=== PATIENT | female | born 1940 | race Caucasian/White ===

== ENCOUNTER → 2016-10-13 | Outpatient (CLI) | payer MEDICARE, BC ==
[~2016-10-13] MED LIST: ALEVE220 MG PO; ASPIRIN E.C. 8181 MG PO; CARDI-OMEGA1000 MG PO; COLACE100 M1 PO; LEVOTHYROXIN0.075 MG PO; LEVOTHYROXINE; STATIN; TRICOR160 MG PO; TYLENOL 325MG325 MG PO; VITAMIN B COMPL1 SGL PO; VITAMIN D32000 IU PO
[2016-10-13 11:41] VITALS: BP 142/64
== END ==
LOC: AMSURD 07:58
DX: E78.2 Mixed hyperlipidemia (principal); C67.9 Malignant neoplasm of bladder, unspecified; M81.0 Age-related osteoporosis without current pathological fracture; Z01.818 Encounter for other preprocedural examination; H27.8 Other specified disorders of lens; E03.4 Atrophy of thyroid (acquired)

== ENCOUNTER → 2016-10-19 | Outpatient (CLI) | payer MEDICARE, BC ==
[2016-10-13 11:41] VITALS: BP 142/64
== END ==
LOC: LAB 16:32
DX: Z01.818 Encounter for other preprocedural examination (principal); Z12.11 Encounter for screening for malignant neoplasm of colon; H28 Cataract in diseases classified elsewhere; C67.9 Malignant neoplasm of bladder, unspecified

== ENCOUNTER → 2017-03-21 | Outpatient (CLI) | payer MEDICARE, BC ==
[2016-10-13 11:41] VITALS: BP 142/64
== END ==
LOC: RAD 09:03
DX: Z01.811 Encounter for preprocedural respiratory examination (principal); C67.9 Malignant neoplasm of bladder, unspecified; E03.4 Atrophy of thyroid (acquired); H28 Cataract in diseases classified elsewhere

== ENCOUNTER → 2017-11-21 | Outpatient (CLI) | payer MEDICARE, BC ==
[2016-10-13 11:41] VITALS: BP 142/64
[2017-11-21 17:38] LABS: BASO # 0.1 (0.02-0.10); EOS # 0.2 (0.04-0.40); EOS % 2.8 % (1.0-5.0); HEMATOCRIT 42.7 % (37.0-47.0); HEMOGLOBIN 13.8 g/dL (12.5-16.0); LYMPH# 2.5 (1.50-4.00); MEAN CELL VOLUME 87 fl (78-100); MEAN CORPUSCULAR HEMOGLOBIN 28 pg (27-31); MEAN CORPUSCULAR HGB CONC 32 g/dL (33-37); MEAN PLATELET VOLUME 9.6 fl (7.4-10.4); MONO # 0.5 (0.20-0.80); NEU # 2.8 (1.40-6.50); PLATELET COUNT 308 K/mm3 (130-400); RED BLOOD COUNT 4.89 M/mm3 (4.10-5.30); RED CELL DISTRIBUTION WIDTH 13.9 % (11.5-14.5)
[2017-11-21 19:39] LABS: ALBUMIN 4.2 g/dL (3.5-5.0); BUN/CREATININE RATIO 22.3 (6.0-26.0); CALCIUM 9.7 mg/dL (8.4-10.2); POTASSIUM 4.5 mmol/L (3.6-5.0); TOTAL BILIRUBIN 0.3 mg/dL (0.2-1.3); TOTAL PROTEIN 7.2 g/dL (6.3-8.2)
[2017-11-21 20:42] LABS: ERYTHROCYTE SEDIMENTATION RATE 20 mm/hr (0-30)
== END ==
LOC: LAB 17:07
PROVIDERS: Internal Medicine
DX: E03.9 Hypothyroidism, unspecified (principal); M81.0 Age-related osteoporosis without current pathological fracture; E78.5 Hyperlipidemia, unspecified; C67.9 Malignant neoplasm of bladder, unspecified; Z88.2 Allergy status to sulfonamides; Z88.8 Allergy status to other drugs, medicaments and biological substances

== ENCOUNTER → 2019-06-07 | Outpatient (CLI) | payer MEDICARE, BC ==
[2016-10-13 11:41] VITALS: BP 142/64
== END ==
LOC: RAD 09:13
DX: Z13.6 Encounter for screening for cardiovascular disorders (principal); I71.4 Abdominal aortic aneurysm, without rupture; I70.0 Atherosclerosis of aorta; I77.89 Other specified disorders of arteries and arterioles

== ENCOUNTER → 2019-10-25 | Outpatient (CLI) | payer MEDICARE ==
[2016-10-13 11:41] VITALS: BP 142/64
[2019-10-25 12:21] LABS: EOS # 0.2 (0.04-0.40); EOS % 2.8 % (1.0-5.0); HEMATOCRIT 41.7 % (37.0-47.0); HEMOGLOBIN 13.2 g/dL (12.5-16.0); LYMPH# 1.9 (1.50-4.00); MEAN CELL VOLUME 89 fl (78-100); MEAN CORPUSCULAR HEMOGLOBIN 28 pg (27-31); MEAN CORPUSCULAR HGB CONC 32 g/dL (33-37); MEAN PLATELET VOLUME 9.2 fl (7.4-10.4); MONO # 0.5 (0.20-0.80); NEU # 3.5 (1.40-6.50); PLATELET COUNT 318 K/mm3 (130-400); RED BLOOD COUNT 4.68 M/mm3 (4.10-5.30); RED CELL DISTRIBUTION WIDTH 13.6 % (11.5-14.5); WHITE BLOOD COUNT 6.2 K/mm3 (4.8-10.8)
[2019-10-25 12:29] LABS: ALBUMIN 4.3 g/dL (3.4-4.8); POTASSIUM 4.1 mmol/L (3.5-5.1)
[2019-10-25 12:30] LABS: CALCIUM 9.9 mg/dL (8.3-10.5)
[2019-10-25 12:32] LABS: TOTAL PROTEIN 7.3 g/dL (6.2-8.1); URINE APPEARANCE CLEAR; URINE BILIRUBIN NEGATIVE (NEGATIVE); URINE BLOOD NEGATIVE (NEGATIVE); URINE COLOR YELLOW; URINE GLUCOSE NEGATIVE (NEGATIVE); URINE KETONE NEGATIVE (NEGATIVE); URINE LEUKOCYTE ESTERASE NEGATIVE (NEGATIVE); URINE NITRATE NEGATIVE (NEGATIVE); URINE PROTEIN(semi-quant) NEGATIVE (NEGATIVE); URINE UROBILINOGEN NORMAL (NORMAL); URINE WBC 0-1 /hpf (0-3)
[2019-10-25 12:34] LABS: TOTAL BILIRUBIN 0.3 mg/dL (0.2-1.2)
[2019-10-25 13:29] LABS: ERYTHROCYTE SEDIMENTATION RATE 33 mm/hr (0-30)
== END ==
LOC: LAB 12:05
PROVIDERS: Internal Medicine
DX: Z12.11 Encounter for screening for malignant neoplasm of colon (principal); C67.9 Malignant neoplasm of bladder, unspecified; M43.8X6 Other specified deforming dorsopathies, lumbar region; M41.86 Other forms of scoliosis, lumbar region; M47.816 Spondylosis without myelopathy or radiculopathy, lumbar region; I77.811 Abdominal aortic ectasia; M81.0 Age-related osteoporosis without current pathological fracture; E78.5 Hyperlipidemia, unspecified; R20.2 Paresthesia of skin; E03.9 Hypothyroidism, unspecified

== ENCOUNTER → 2019-11-07 | Outpatient (CLI) | payer MEDICARE ==
[2016-10-13 11:41] VITALS: BP 142/64
== END ==
LOC: LAB 12:34
DX: Z12.31 Encounter for screening mammogram for malignant neoplasm of breast (principal); E78.5 Hyperlipidemia, unspecified; M81.0 Age-related osteoporosis without current pathological fracture

== ENCOUNTER → 2020-10-14 | Outpatient (CLI) | payer MEDICARE ==
[2016-10-13 11:41] VITALS: BP 142/64
[2020-10-14 10:04] LABS: BASO # 0.1 (0.02-0.10); EOS # 0.2 (0.04-0.40); HEMATOCRIT 46.5 % (37.0-47.0); HEMOGLOBIN 15.3 g/dL (12.5-16.0); LYMPH# 2.1 (1.50-4.00); MEAN CELL VOLUME 87 fl (78-100); MEAN CORPUSCULAR HEMOGLOBIN 29 pg (27-31); MEAN CORPUSCULAR HGB CONC 33 g/dL (33-37); MEAN PLATELET VOLUME 9.7 fl (7.4-10.4); MONO # 0.5 (0.20-0.80); NEU # 3.4 (1.40-6.50); PLATELET COUNT 270 K/mm3 (130-400); RED BLOOD COUNT 5.34 M/mm3 (4.10-5.30); RED CELL DISTRIBUTION WIDTH 13.3 % (11.5-14.5); WHITE BLOOD COUNT 6.3 K/mm3 (4.8-10.8)
[2020-10-14 10:08] LABS: POTASSIUM 4.4 mmol/L (3.5-5.1)
[2020-10-14 10:10] LABS: ALBUMIN 4.3 g/dL (3.4-4.8); CALCIUM 9.2 mg/dL (8.3-10.5)
[2020-10-14 10:12] LABS: TOTAL PROTEIN 7.5 g/dL (6.2-8.1)
[2020-10-14 10:13] LABS: TOTAL BILIRUBIN 0.5 mg/dL (0.2-1.2)
== END ==
LOC: LAB 09:36
PROVIDERS: Family Medicine
DX: Z00.00 Encounter for general adult medical examination without abnormal findings (principal); E78.5 Hyperlipidemia, unspecified; E03.4 Atrophy of thyroid (acquired)

== ENCOUNTER 2021-09-21 12:57 | Outpatient (RCR) | payer MEDICARE ==
[~2021-09-21 12:57] MED LIST changes: +MACROBID 100 M100 MG PO; +MORGIDOX 1X100100 MG PO; +PREDNISONE20 M1 PO
== END 2021-09-28 | disposition home or self-care (01) ==
LOC: PT
DX: S82.832D Other fracture of upper and lower end of left fibula, subsequent encounter for closed fracture with routine healing (principal)

== ENCOUNTER 2021-10-02 14:17 | Outpatient (RCR) | payer MEDICARE | END 2021-10-02 17:00 | disposition home or self-care (01) | LOC: PT 14:17 | DX: S82.832D Other fracture of upper and lower end of left fibula, subsequent encounter for closed fracture with routine healing (principal); X58.XXXD Exposure to other specified factors, subsequent encounter ==

== ENCOUNTER → 2021-10-19 | Outpatient (CLI) | payer MEDICARE ==
[2021-10-19 15:04] LABS: BASO # 0.07 K/mm3 (0.02-0.10); EOS # 0.17 K/mm3 (0.04-0.40); EOS % 2.8 % (1.0-5.0); HEMATOCRIT 44.2 % (37.0-47.0); HEMOGLOBIN 14.1 g/dL (12.5-16.0); LYMPH# 1.82 K/mm3 (1.50-4.00); MEAN CELL VOLUME 89 fl (78-100); MEAN CORPUSCULAR HEMOGLOBIN 29 pg (27-31); MEAN CORPUSCULAR HGB CONC 32 g/dL (33-37); MEAN PLATELET VOLUME 9.7 fl (7.4-10.4); MONO # 0.43 K/mm3 (0.20-0.80); NEU # 3.47 K/mm3 (1.40-6.50); PLATELET COUNT 339 K/mm3 (130-400); RED BLOOD COUNT 4.95 M/mm3 (4.10-5.30); RED CELL DISTRIBUTION WIDTH 14.6 % (11.5-14.5)
[2021-10-19 15:06] LABS: ALBUMIN 4.3 g/dL (3.4-4.8); POTASSIUM 3.9 mmol/L (3.5-5.1)
[2021-10-19 15:07] LABS: CALCIUM 9.8 mg/dL (8.3-10.5)
[2021-10-19 15:08] LABS: TOTAL PROTEIN 7.5 g/dL (6.2-8.1)
[2021-10-19 15:10] LABS: TOTAL BILIRUBIN 0.3 mg/dL (0.2-1.2)
== END ==
LOC: LAB 14:05
PROVIDERS: Family Medicine
DX: Z00.00 Encounter for general adult medical examination without abnormal findings (principal); I10 Essential (primary) hypertension; E78.5 Hyperlipidemia, unspecified; E03.4 Atrophy of thyroid (acquired); E55.9 Vitamin D deficiency, unspecified; J44.9 Chronic obstructive pulmonary disease, unspecified; C67.9 Malignant neoplasm of bladder, unspecified; E66.9 Obesity, unspecified; M19.90 Unspecified osteoarthritis, unspecified site; M81.0 Age-related osteoporosis without current pathological fracture; K59.04 Chronic idiopathic constipation; M47.816 Spondylosis without myelopathy or radiculopathy, lumbar region

== ENCOUNTER 2021-10-21 10:52 | Outpatient (RCR) | payer MEDICARE | END 2021-10-26 | disposition home or self-care (01) | LOC: PT | DX: R42 Dizziness and giddiness (principal) ==

== ENCOUNTER 2021-10-30 12:59 | Outpatient (RCR) | payer MEDICARE | END 2021-10-30 17:00 | disposition home or self-care (01) | LOC: PT 12:59 | DX: R42 Dizziness and giddiness (principal) ==

== ENCOUNTER → 2022-05-11 | Outpatient (CLI) | payer MEDICARE ==
[2022-05-11 15:42] LABS: BASO # 0.06 K/mm3 (0.02-0.10); EOS # 0.19 K/mm3 (0.04-0.40); EOS % 3.2 % (1.0-5.0); HEMATOCRIT 43.3 % (37.0-47.0); MEAN CELL VOLUME 90 fl (78-100); MEAN CORPUSCULAR HEMOGLOBIN 29 pg (27-31); MEAN CORPUSCULAR HGB CONC 32 g/dL (33-37); MEAN PLATELET VOLUME 9.3 fl (7.4-10.4); MONO # 0.45 K/mm3 (0.20-0.80); NEU # 3.16 K/mm3 (1.40-6.50); PLATELET COUNT 283 K/mm3 (130-400); RED BLOOD COUNT 4.84 M/mm3 (4.10-5.30); RED CELL DISTRIBUTION WIDTH 12.9 % (11.5-14.5); WHITE BLOOD COUNT 5.9 K/mm3 (4.8-10.8)
[2022-05-11 15:52] LABS: ALBUMIN 4.1 g/dL (3.4-4.8)
[2022-05-11 15:53] LABS: CALCIUM 9.5 mg/dL (8.3-10.5)
[2022-05-11 15:56] LABS: TOTAL BILIRUBIN 0.3 mg/dL (0.2-1.2)
== END ==
LOC: LAB 15:21
PROVIDERS: Family Medicine
DX: C67.9 Malignant neoplasm of bladder, unspecified (principal); M47.816 Spondylosis without myelopathy or radiculopathy, lumbar region; J44.9 Chronic obstructive pulmonary disease, unspecified; I10 Essential (primary) hypertension; M25.552 Pain in left hip; E03.4 Atrophy of thyroid (acquired); H28 Cataract in diseases classified elsewhere; E78.2 Mixed hyperlipidemia; E66.9 Obesity, unspecified; M19.91 Primary osteoarthritis, unspecified site; M19.049 Primary osteoarthritis, unspecified hand; R53.83 Other fatigue

== ENCOUNTER → 2022-10-22 | Outpatient (CLI) | payer MEDICARE ==
[2022-10-22 08:07] LABS: BASO # 0.04 K/mm3 (0.02-0.10); EOS # 0.14 K/mm3 (0.04-0.40); EOS % 2.3 % (1.0-5.0); HEMATOCRIT 44.6 % (37.0-47.0); HEMOGLOBIN 14.2 g/dL (12.5-16.0); LYMPH# 2.27 K/mm3 (1.50-4.00); MEAN CELL VOLUME 91 fl (78-100); MEAN CORPUSCULAR HEMOGLOBIN 29 pg (27-31); MEAN CORPUSCULAR HGB CONC 32 g/dL (33-37); MEAN PLATELET VOLUME 8.9 fl (7.4-10.4); MONO # 0.53 K/mm3 (0.20-0.80); NEU # 3.05 K/mm3 (1.40-6.50); PLATELET COUNT 301 K/mm3 (130-400); RED BLOOD COUNT 4.92 M/mm3 (4.10-5.30); RED CELL DISTRIBUTION WIDTH 13.5 % (11.5-14.5)
[2022-10-22 08:11] LABS: ALBUMIN 3.9 g/dL (3.4-4.8)
[2022-10-22 08:12] LABS: CALCIUM 9.6 mg/dL (8.3-10.5)
[2022-10-22 08:13] LABS: TOTAL PROTEIN 6.8 g/dL (6.2-8.1)
[2022-10-22 08:15] LABS: TOTAL BILIRUBIN 0.4 mg/dL (0.2-1.2)
== END ==
LOC: LAB 07:37
PROVIDERS: Nurse Practitioner
DX: Z00.00 Encounter for general adult medical examination without abnormal findings (principal)

== ENCOUNTER → 2022-10-25 | Outpatient (CLI) | payer MEDICARE | LOC: RAD 13:43 | DX: M25.572 Pain in left ankle and joints of left foot (principal) ==

== ENCOUNTER → 2024-11-13 | Outpatient (CLI) | payer MEDICARE ==
[2024-11-13 14:30] LABS: BASO # 0.05 K/mm3 (0.02-0.10); EOS # 0.13 K/mm3 (0.04-0.40); EOS % 1.9 % (1.0-5.0); HEMATOCRIT 44.5 % (37.0-47.0); HEMOGLOBIN 14.3 g/dL (12.5-16.0); MEAN CELL VOLUME 88 fl (78-100); MEAN CORPUSCULAR HEMOGLOBIN 28 pg (27-31); MEAN CORPUSCULAR HGB CONC 32 g/dL (33-37); MEAN PLATELET VOLUME 9.3 fl (7.4-10.4); MONO # 0.51 K/mm3 (0.20-0.80); NEU # 4.47 K/mm3 (1.40-6.50); PLATELET COUNT 345 K/mm3 (130-400); RED BLOOD COUNT 5.05 M/mm3 (4.10-5.30); RED CELL DISTRIBUTION WIDTH 13.9 % (11.5-14.5)
[2024-11-13 14:34] LABS: ALBUMIN 4.4 g/dL (3.4-4.8)
[2024-11-13 14:35] LABS: CALCIUM 10.1 mg/dL (8.3-10.5)
[2024-11-13 14:38] LABS: TOTAL BILIRUBIN 0.4 mg/dL (0.2-1.2)
== END ==
LOC: LAB 14:07
PROVIDERS: Family Medicine
DX: I10 Essential (primary) hypertension (principal); E78.5 Hyperlipidemia, unspecified; E03.4 Atrophy of thyroid (acquired); E55.9 Vitamin D deficiency, unspecified